=== PATIENT | female | born 1955 | race Caucasian/White ===

== ENCOUNTER 2019-07-02 13:35 | Outpatient (CLI) | payer MEDICARE ==
[~2019-07-02 13:35] MED LIST: AMLO5TAB4 PO; BENADRYL PO; BENZTROPINE PO; CARI3CAP PO; CHOL500045 PO; DIPH25TA24 PO; HALO5TAB5 PO; LEVO50TA PO; LITH300C PO; LITH300T3 PO; LORA2TAB99 PO; OMEP40CA42 PO; PALI3TAB11 PO; PRAZ2CAP2 PO; PROM25TA10 PO; THIOTHIXENE PO; TRAZ150T62 PO
== END 2019-07-02 23:59 | disposition home or self-care (01) ==
LOC: RAD 13:35
PROVIDERS: ATTEND Otolaryngology
DX: K44.9 Diaphragmatic hernia without obstruction or gangrene (principal); R07.0 Pain in throat
CPT/HCPCS: 74220

== ENCOUNTER → 2019-11-29 | Outpatient (CLI) | payer MEDICARE | END | disposition home or self-care (01) | LOC: RAD 14:11 | PROVIDERS: ATTEND Family Medicine | DX: I49.1 Atrial premature depolarization (principal); R06.02 Shortness of breath | CPT/HCPCS: 71046; 93005 ==

== ENCOUNTER 2020-08-28 15:44 | Outpatient (CLI) | payer MEDICARE | END 2020-08-28 23:59 | disposition home or self-care (01) | LOC: CFH 15:44 | PROVIDERS: ATTEND Physician Assistant Surgical | DX: I08.3 Combined rheumatic disorders of mitral, aortic and tricuspid valves (principal) | CPT/HCPCS: 93306 ==

== ENCOUNTER 2020-12-05 01:02 | Inpatient (IN) | payer MEDICARE ==
[~2020-12-05] VITALS: Ht 170.2 cm; Wt 80.7 kg
[2020-12-05] VITALS (7 sets, daily range): BP systolic 117–162; BP diastolic 69–99
[~2020-12-05 01:02] MED LIST changes: +ASPI-614 PO; +CARB200T4 PO; +LITHIUM PO; +NAVANE; -OMEP40CA42 PO; +OMEP40CA8 PO; +PRAZOSIN; +TEGRETOL; +THIO5CAP2 PO; +TRAZ50TA66 PO
[2020-12-05] MEDS ORDERED: SODIUM CHLORIDE 0.9% 1,000 ML IV ONE (01:30)
[2020-12-05] MEDS ORDERED: SODIUM CHLORIDE FLUSH 10ML SYR IVF ONE (01:30)
[2020-12-05 01:34] LABS: BASOPHILS % (AUTO) 1 % (0-1); EOSINOPHILS % (AUTO) 5 % (1-7); LYMPHOCYTES % (AUTO) 26 % (22-44); MEAN CORPUSCULAR HEMOGLOBIN 31.7 pg (27.0-34.8); MEAN CORPUSCULAR HGB CONC 34.7 g/dL (32.4-35.8); MEAN PLATELET VOLUME 9.9 fL (7.4-10.4); MONOCYTES % (AUTO) 8 % (2-9); NEUTROPHILS % (AUTO) 61 % (42-75); PLATELET COUNT 225 x10^3/uL (130-400); RED BLOOD COUNT 4.34 x10^6/uL (3.82-5.3); RED CELL DISTRIBUTION WIDTH 14.6 % (9.6-15.2)
[2020-12-05 01:44] LABS: ALANINE AMINOTRANSFERASE 25 U/L (12-78); ALBUMIN 3.5 g/dL (3.4-5.0); ANION GAP 5 mmol/L (5-15); CHLORIDE 109 mmol/L (98-107)
[2020-12-05 01:54] LABS: ALKALINE PHOSPHATASE 130 U/L (45-117); BILIRUBIN,TOTAL 0.2 mg/dL (0.2-1.0); T4 (THYROXINE) 7.7 mcg/dL (4.8-13.9); TOTAL PROTEIN 7.1 g/dL (6.4-8.2)
[2020-12-05 02:08] LABS: INTERNATIONAL NORMALIZED RATIO 0.94 (0.93-1.1); PROTHROMBIN TIME 10.1 Seconds (9.6-11.5)
--- NOTE | 2020-12-05 02:19 | NUR ---
PT REMAINS ASYMPTOMATIC IN A FLUTTER 2:1 RATE 86 NO ECTOPY. IVF INFUSING.
--- NOTE | 2020-12-05 03:11 | NUR ---
[employer] interrogator used, waiting now for report.
--- NOTE | 2020-12-05 03:36 | NUR ---
Pt waiting for tele admit, no complaints, no medications given. IVF 250ml/hr. Remains A flutter rate 80. AIDET provided.
--- NOTE | 2020-12-05 03:54 | NUR ---
Dr Cleary at bedside speaking with . Pt placed on transport monitor RTG.
[2020-12-05] MEDS ORDERED: DILTIAZEM 5 MG/ML, 5ML IVPush PRN (04:30)
[2020-12-05] MEDS ORDERED: PROMETHAZINE 25 MG/ML, 1ML IM PRN (04:30)
[2020-12-05] MEDS ORDERED: MELATONIN 5 MG TABLET PO PRN (04:30)
[2020-12-05] MEDS ORDERED: LABETALOL 5MG/ML, 20ML IVPush PRN (04:30)
[2020-12-05] MEDS: SENNA/DOCUSATE TABLET PO SCH (09:15)
[2020-12-05] MEDS: APIXABAN 5 MG TABLET PO SCH ×2 (11:38→22:03)
[2020-12-05] MEDS ORDERED: FILTER 1.2 MICRON IV PRN (14:00)
[2020-12-05] MEDS ORDERED: AMIODARONE 150 MG in DEXTROSE 5% 100 ML IV ONE (14:00)
[2020-12-05] MEDS: AMIODARONE 450 MG in DEXTROSE 5% 241 ML IV PRN (15:09)
[2020-12-05] MEDS: PRAZOSIN 2 MG CAPSULE PO SCH (22:03)
[2020-12-05] MEDS: TRAZODONE 50MG TABLET PO SCH (22:03)
[2020-12-05] MEDS: LITHIUM CARBONATE 300 MG CAPSULE PO SCH (22:03)
[2020-12-05] MEDS: CARBAMAZEPINE 200 MG TABLET PO SCH (22:03)
[2020-12-06] MEDS: AMIODARONE 450 MG in DEXTROSE 5% 241 ML IV PRN ×2 (01:02→20:11)
[2020-12-06 01:28] VITALS: BP 123/78
[2020-12-06 04:38] LABS: BASOPHILS % (AUTO) 1 % (0-1); EOSINOPHILS % (AUTO) 8 % (1-7); LYMPHOCYTES % (AUTO) 24 % (22-44); MEAN CORPUSCULAR HEMOGLOBIN 31.9 pg (27.0-34.8); MEAN CORPUSCULAR HGB CONC 34.6 g/dL (32.4-35.8); MEAN PLATELET VOLUME 9.5 fL (7.4-10.4); MONOCYTES % (AUTO) 7 % (2-9); NEUTROPHILS % (AUTO) 61 % (42-75); PLATELET COUNT 189 x10^3/uL (130-400); RED BLOOD COUNT 4.06 x10^6/uL (3.82-5.3); RED CELL DISTRIBUTION WIDTH 14.5 % (9.6-15.2)
[2020-12-06 04:48] LABS: ANION GAP 6 mmol/L (5-15); CALCIUM 9.6 mg/dL (8.5-10.1); CHLORIDE 108 mmol/L (98-107); CREATININE 1.52 mg/dL (0.55-1.02)
[2020-12-06 06:39] VITALS: BP 125/78
[2020-12-06] MEDS: LEVOTHYROXINE 50 MCG TABLET PO SCH (08:44)
[2020-12-06] MEDS: APIXABAN 5 MG TABLET PO SCH ×2 (08:44→20:10)
[2020-12-06] MEDS: CARBAMAZEPINE 200 MG TABLET PO SCH ×2 (08:44→20:10)
[2020-12-06] MEDS: SENNA/DOCUSATE TABLET PO SCH (08:44)
[2020-12-06 13:58] VITALS: BP 101/71
[2020-12-06] MEDS: ACETAMINOPHEN 325 MG TABLET PO PRN (15:13)
[2020-12-06 20:09] VITALS: BP 135/84
[2020-12-06] MEDS: LITHIUM CARBONATE 300 MG CAPSULE PO SCH (20:10)
[2020-12-06] MEDS: TRAZODONE 50MG TABLET PO SCH (20:10)
[2020-12-06] MEDS: PRAZOSIN 2 MG CAPSULE PO SCH (20:10)
[2020-12-07 01:24] VITALS: BP 99/64
[2020-12-07] MEDS: ACETAMINOPHEN 325 MG TABLET PO PRN (04:00)
[2020-12-07 06:46] VITALS: BP 105/72
[2020-12-07] MEDS: CARBAMAZEPINE 200 MG TABLET PO SCH (08:45)
[2020-12-07] MEDS: SENNA/DOCUSATE TABLET PO SCH (08:46)
[2020-12-07] MEDS: LEVOTHYROXINE 50 MCG TABLET PO SCH (08:46)
[2020-12-07] MEDS: APIXABAN 5 MG TABLET PO SCH (08:46)
[2020-12-07] MEDS ORDERED: AMIODARONE 200 MG TABLET PO SCH (10:30)
[2020-12-07] MEDS ORDERED: PROPOFOL 10 MG/ML, 20ML ONE (12:37)
[2020-12-07 13:44] VITALS: BP 124/60
[2020-12-07] MEDS ORDERED: APIX5TAB PO (13:45)
[2020-12-07] MEDS ORDERED: AMIO200T42 PO (13:45)
== END 2020-12-07 16:55 | disposition home or self-care (01) | DRG 310 ==
LOC: ED 03:35 → INTOOBSV 03:37 → EDIP 03:37 → 5SO 04:21 → OBSVTOIN 12-06 07:18
PROVIDERS: ADMIT Family Medicine; ATTEND Hospitalist
PROC: 4B02XSZ Measurement of Cardiac Pacemaker, External Approach (ICD-10-PCS; 2020-12-05)
PROC: B24BZZ4 Ultrasonography of Heart with Aorta, Transesophageal (ICD-10-PCS; 2020-12-07)
PROC: 5A2204Z Restoration of Cardiac Rhythm, Single (ICD-10-PCS; principal; 2020-12-07 13:15)
DX: I48.92 Unspecified atrial flutter (principal); I12.9 Hypertensive chronic kidney disease with stage 1 through stage 4 chronic kidney disease, or unspecified chronic kidney disease; F31.9 Bipolar disorder, unspecified; N18.9 Chronic kidney disease, unspecified; I70.8 Atherosclerosis of other arteries; I73.9 Peripheral vascular disease, unspecified; E78.5 Hyperlipidemia, unspecified; Z20.822 Contact with and (suspected) exposure to COVID-19; G47.33 Obstructive sleep apnea (adult) (pediatric); Z87.891 Personal history of nicotine dependence; Z95.0 Presence of cardiac pacemaker
CPT/HCPCS: 36415; 71045; 80048; 80053; 80178; 83735; 84436; 84443; 85025; 85610; 85730; 87635; 92960; 93005; 93312; 93321; 93325; G0378; J2704; J7060; J0282; J7030

== ENCOUNTER → 2020-12-23 | Outpatient (CLI) | payer MEDICARE ==
[~2020-12-23] MED LIST changes: +AMIO200T42 PO; +APIX5TAB PO
[2020-12-23 10:37] LABS: ALBUMIN 3.8 g/dL (3.4-5.0); ANION GAP 6 mmol/L (5-15); CALCIUM 10.3 mg/dL (8.5-10.1); CHLORIDE 111 mmol/L (98-107); CHOLESTEROL, TOTAL 245 mg/dL (140-239)
[2020-12-23 10:46] LABS: ALANINE AMINOTRANSFERASE 20 U/L (12-78); ALKALINE PHOSPHATASE 129 U/L (45-117); BILIRUBIN,TOTAL 0.3 mg/dL (0.2-1.0); CHOL/HDL RATIO 3.7; HDL CHOL % 27 % (28-40); HDL CHOLESTEROL (DIRECT) 67 mg/dL (40-60); LDL CHOLESTEROL,CALCULATED 148 mg/dL (54-169); LDL/HDL RATIO 2.2 (0.5-3.0); TOTAL PROTEIN 7.3 g/dL (6.4-8.2); TRIGLYCERIDES 152 mg/dL (50-200); VLDL CHOLESTEROL 30 mg/dL (0-25)
== END | disposition home or self-care (01) ==
LOC: LAB 10:08
PROVIDERS: ATTEND Internal Medicine Cardiovascular Disease
DX: R93.1 Abnormal findings on diagnostic imaging of heart and coronary circulation (principal); I73.9 Peripheral vascular disease, unspecified; E78.2 Mixed hyperlipidemia; N18.9 Chronic kidney disease, unspecified; R00.1 Bradycardia, unspecified
CPT/HCPCS: 36415; 80053; 80061; 80178; 84436; 84443; 84481